=== PATIENT | female | born 1950 | race Caucasian/White ===

== ENCOUNTER → 2017-05-13 | Day surgery (SDC) | payer BC ==
[~2017-05-13] MED LIST: ALLEGRA PO; CARVEDILOL25 M1 PO; DIOVAN80 M1 PO; DOCUSATE SODIU100 MG PO; DULERA 100 MCG/13 GM INH; FERROUS GLUCON324 MG PO; FLUOXETINE HCL40 M1 PO; MELOXICAM7.5 MG PO; MULTIPLE VITAM1 EAC1 PO; SINGULAIR PO; VITAMIN D-32000 UNI2 PO
--- NOTE | ~2017-05-13 | OR ---
Unit #: [id number] #: [id number] Patient: VINAY ANDRE [id number] [address] [place], [place] [address] [id number] MR#: [id number] NAME: VINAY ANDRE ROOM: Date of Procedure: 05/13/2017 Admission Date: 05/13/2017 Surgeon: Jacob Shah Jr., M.D. : 1950 Attending Physician: Jacob Shah Jr., M.D. OPERATIVE REPORT INDICATIONS FOR PROCEDURE The patient is a morbidly obese 66-year-old white female, who recently presented to the office complaining problems with rectal bleeding, intermittent diarrhea of unknown etiology. She has had no colonoscopy over 3 years. It was felt she should have a repeat colonoscopy. She is brought in this time for this procedure at her request. She understands the procedure including the risks, including that of perforation and bleeding, and consents. She has had her prep at home. PREOPERATIVE DIAGNOSES Possible colitis with diarrhea and rectal bleeding. POSTOPERATIVE DIAGNOSIS No evidence of colitis, but the patient was noted to have evidence of a large external hemorrhoids, which were not actively bleeding. Had no other specific abnormalities to the cecum. ANESTHESIA MAC anesthesia. PROCEDURE PERFORMED Flexible colonoscopy to the cecum. DESCRIPTION OF PROCEDURE The patient was positioned in Garcia position with left side down. After being given MAC anesthesia, digital rectal examination was performed, which revealed no palpable mass or tenderness. No blood or stool in the rectal ampulla. There were large external hemorrhoids present, which were not actively bleeding. The Olympus colonoscope was advanced into the anal canal up the rectum and retroflexed down to the area of the anorectal region. There was no evidence of any fissures. No significant internal hemorrhoids. The scope was then straightened and advanced up in the rectosigmoid, in the sigmoid and descending colon areas, around the splenic flexure and the transverse colon, around hepatic flexure and ascending colon, down in the area of the cecum. The light from the tip of the scope could be seen transilluminating through right lower quadrant abdominal wall area. Multiple attempts advancing the scope up the distal ileum were unsuccessful. The scope was slowly removed. There were no tumors, polyps, cancer, or AVMs. No evidence of any colitis, diverticulosis, or diverticulitis. The caliber of the colon appeared normal throughout. The scope was removed. The patient tolerated the procedure well and discharged in satisfactory condition. Unit #: [id number] #: [id number] Patient: VINAY ANDRE Dictated by... Jacob Shah Jr., M.D. JMB/kizzy TD: 05/13/2017 15:39 JOB #: [id number] OPERATIVE REPORT Page 1 of 1 X Jacob Shah MD X PROCEDURE OPERATIVE NOTE
== END | disposition home or self-care (01) ==
LOC: COPS 10:55
DX: K64.4 Residual hemorrhoidal skin tags (principal); E66.01 Morbid (severe) obesity due to excess calories; I10 Essential (primary) hypertension; G47.30 Sleep apnea, unspecified; J45.909 Unspecified asthma, uncomplicated; J30.2 Other seasonal allergic rhinitis; K52.9 Noninfective gastroenteritis and colitis, unspecified; Z87.442 Personal history of urinary calculi; Z80.0 Family history of malignant neoplasm of digestive organs; Z88.5 Allergy status to narcotic agent; Z68.43 Body mass index [BMI] 50.0-59.9, adult; Z90.710 Acquired absence of both cervix and uterus; Z98.51 Tubal ligation status; Z90.721 Acquired absence of ovaries, unilateral; Z96.653 Presence of artificial knee joint, bilateral; Z98.890 Other specified postprocedural states; Z79.1 Long term (current) use of non-steroidal anti-inflammatories (NSAID); Z79.899 Other long term (current) drug therapy